=== PATIENT | male | born 1985 | race American Indian/Alaskan Native ===

== ENCOUNTER 2017-06-13 00:47 | Emergency (ER) | payer SELFPAY ==
[2017-06-13] MEDS ORDERED: TYLENOL ONE (01:49)
[2017-06-13] MEDS ORDERED: MOTRIN ONE (04:16)
[2017-06-13] MEDS ORDERED: MOTRIN PO ONE (04:18)
[2017-06-13] MEDS ORDERED: TYLENOL PO ONE (04:44)
--- NOTE | 2017-06-13 04:51 | XRay Report ---
FINAL REPORT EXAM: XR CHEST ROUTINE 2V HISTORY: fev/cough TECHNIQUE: PA and lateral views of the chest were submitted. FINDINGS: The lungs are clear. The heart size is normal. Pleural fluid is not seen. The skeletal structures are well-maintained. IMPRESSION: No active chest disease.
--- NOTE | 2017-06-13 05:09 | Emergency Department Report ---
Minor Respiratory - HPI Chief Complaint: Fever Stated Complaint: FLU LIKE SX Time Seen by Provider: 06/13/17 05:02 Duration: 1 Day Severity: mild Minor Respiratory: Yes Able to Tolerate Fluids, Yes Cough, Yes Fever, No Rhinorrhea, No Sore Throat, No Ear Pain, No Sick Contacts, No Hemoptysis, No Chest Pain, No Shortness of Breath Other History: 32-year-old male with no problem medical problems presents to ED complaining of fever, cough and body aches 1 day. Patient states he does not recall having C contacts. He describes cough as intermittent nonproductive. Denies dysuria, penile discharge, abdominal pain, nausea or vomiting. ED Review of Systems ROS: Stated complaint: FLU LIKE SX Other details as noted in HPI Constitutional: fever. denies: chills Eyes: denies: eye pain, eye discharge, vision change ENT: denies: ear pain, throat pain Respiratory: cough. denies: shortness of breath, wheezing Cardiovascular: denies: chest pain, palpitations Endocrine: no symptoms reported Gastrointestinal: denies: abdominal pain, nausea, diarrhea Genitourinary: denies: urgency, dysuria Musculoskeletal: denies: back pain, joint swelling, arthralgia Skin: denies: rash, lesions Neurological: denies: headache, weakness, paresthesias Psychiatric: denies: anxiety, depression Hematological/Lymphatic: denies: easy bleeding, easy bruising ED Past Medical Hx - Past Medical History Previous Medical History?: No Additional medical history: No allergies - Surgical History Past Surgical History?: No - Social History Smoking Status: Never Smoker Substance Use Type: None - Medications Home Medications: Home Medications Medication Instructions Recorded Confirmed Last Taken Type Cyclobenzaprine [Flexeril] 10 mg PO TID PRN #15 tablet 12/29/15 Unknown Rx Diclofenac Sodium 75 mg PO BID #20 tablet. 12/29/15 Unknown Rx HYDROcodone/APAP 5-325 [[place] 1 each PO Q6HR PRN #7 tablet 12/29/15 Unknown Rx 5/325] Benzonatate [Tessalon Perles] 100 mg PO Q8HR #24 capsule 06/13/17 Unknown Rx Ibuprofen [Motrin] 800 mg PO Q8HR PRN #30 tablet 06/13/17 Unknown Rx guaiFENesin [Robitussin] 200 mg PO Q4HR #100 ml 06/13/17 Unknown Rx predniSONE [Deltasone] 10 mg PO QDAY #4 tab 06/13/17 Unknown Rx Minor Respiratory Exam - Exam General: Vital signs noted. No distress. Alert and acting appropriately. HEENT: Yes Moist Mucous Membranes, No Pharyngeal Erythema, No Pharyngeal Exudates, No Rhinorrhea, No Conjuctival Injection, No Frontal Tenderness, No Maxillary Tenderness Ear: Neither TM Bulge, Neither TM Erythema, Neither EAC Pain, Neither EAC Discharge Neck: Yes Supple, No Adenopathy Lungs: Yes Good Air Exchange, No Wheezes, No Ronchi, No Stridor, No Cough, No Labored Respirations, No Retractions, No Use of Accessory Muscles, No Other Abnormal Lung Sounds Heart: Yes Regular, No Murmur Abdomen: Yes Normal Bowel Sounds, No Tenderness, No Peritoneal Signs Skin: No Rash, No Edema Neurologic: Alert and oriented, no deficits. Musculoskeletal: Unremarkable. ED Course Vital Signs 06/13/17 01:50 Temperature 102.5 F H Pulse Rate 100 H Respiratory 16 Rate Blood Pressure 144/96 O2 Sat by Pulse 100 Oximetry ED Medical Decision Making - Radiology Data Radiology results: report reviewed, image reviewed FINAL REPORT EXAM: XR CHEST ROUTINE 2V HISTORY: fev/cough TECHNIQUE: PA and lateral views of the chest were submitted. FINDINGS: The lungs are clear. The heart size is normal. Pleural fluid is not seen. The skeletal structures are well-maintained. IMPRESSION: No active chest disease. Transcribed By: DEEPTHI Dictated By: OSBALDO DOCKERY MD Electronically Authenticated By: OSBALDO DOCKERY MD Signed Date/Time: 06/13/17 4187 - Medical Decision Making 32-year-old male presents with flulike symptoms. Fever resolved during the ED stay. Rapid strep and flu negative, urinalysis negative, chest x-ray negative Discussed with pt symptomatic relief with [id number] medications. Discussed continue Tylenol and Motrin as needed for fever and pain. Discussed increase fluids and diet intake. Discussed rest much needed. Discussed daily vitamin C for immune booster. Discussed follow-up with pcp in 3-5 days. Patient verbally states she understands and will comply the following instructions and follow-up Vital signs stable. Patient is in no acute distress Critical care attestation.: If time is entered above; I have spent that time in minutes in the direct care of this critically ill patient, excluding procedure time. ED Disposition Clinical Impression: Viral syndrome Upper respiratory infection Qualifiers: URI type: unspecified URI Qualified Code(s): J06.9 - Acute upper respiratory infection, unspecified Disposition: TO HOME OR SELFCARE Is pt being admited?: No Does the pt Need Aspirin: No Condition: Stable Instructions: Upper Respiratory Infection (ED), Acute Bronchitis (ED), Viral Syndrome (ED), Cold Symptoms (ED) Additional Instructions: Make sure to follow up with the primary care physician as discussed. Take all your medications as you've been prescribed. If you have any worsening symptoms or develop new symptoms please return to ED immediately. Prescriptions: Benzonatate [Tessalon Perles] 100 mg PO Q8HR #24 capsule guaiFENesin [Robitussin] 200 mg PO Q4HR #100 ml Ibuprofen [Motrin] 800 mg PO Q8HR PRN #30 tablet PRN Reason: Pain predniSONE [Deltasone] 10 mg PO QDAY #4 tab Referrals: PRIMARY CARE, [Primary Care Provider] - 3-[address] [facility] [Outside] - 3-5 Days [facility] [Outside] - 3-5 Days [facility] [Outside] - 3-5 Days Forms: Accompanied Note, Work/School Release Form(ED) Time of Disposition: 06:01
[2017-06-13 05:23] LABS: Bilirubin,Urine NEG (Negative); Blood,Urine MOD (Negative); Color,Urine Yellow (Yellow)
[2017-06-13 06:08] VITALS: BP 144/66
== END 2017-06-13 06:32 | disposition home or self-care (01) ==
LOC: ED 00:47
DX: B34.9 Viral infection, unspecified (principal); J06.9 Acute upper respiratory infection, unspecified
CPT/HCPCS: 71046; 81001; 87116; 87400; 87430; 99284

== ENCOUNTER 2017-09-24 01:48 | Emergency (ER) | payer SELFPAY ==
--- NOTE | 2017-09-24 02:27 | XRay Report ---
FINAL REPORT EXAM: XR CLAVICLE RT HISTORY: trauma, pain TECHNIQUE: Two views of the right clavicle were obtained. FINDINGS: There is no evidence of fracture or soft tissue injury. IMPRESSION: Within normal limits.
--- NOTE | 2017-09-24 02:28 | XRay Report ---
FINAL REPORT EXAM: XR SHOULDER 2+V RT HISTORY: trauma, pain TECHNIQUE: Three views of the right shoulder were obtained. FINDINGS: There is no evidence of fracture or dislocation. The AC joint and glenohumeral joint appear normal. The soft tissues are unremarkable. IMPRESSION: Within normal limits.
[2017-09-24 03:34] LABS: Basophils # (Auto) 0.1 K/mm3 (0.0-0.1); Basophils % (Auto) 0.4 % (0.0-1.8); Eosinophils # (Auto) 0.1 K/mm3 (0.0-0.4); Eosinophils % (Auto) 0.8 % (0.0-4.3); Hematocrit 43.5 % (35.5-45.6); Hemoglobin 14.7 gm/dl (11.8-15.2); Lymphocytes # (Auto) 1.5 K/mm3 (1.2-5.4); Mean Corpuscular HGB Conc 34 % (32-34); Mean Corpuscular Hemoglobin 29 pg (28-32); Mean Corpuscular Volume 86 fl (84-94); Monocytes # (Auto) 0.9 K/mm3 (0.0-0.8); Monocytes % (Auto) 6.4 % (0.0-7.3); Platelet Count 328 K/mm3 (140-440); Red Blood Count 5.05 M/mm3 (3.65-5.03); Red Cell Distribution Width 12.8 % (13.2-15.2)
--- NOTE | 2017-09-24 04:00 | Emergency Department Report ---
ED Fall HPI - General Chief Complaint: Extremity Injury, Upper Stated Complaint: SHOULDER PAIN Time Seen by Provider: 09/24/17 02:23 Source: patient Mode of arrival: Ambulatory Limitations: Altered Mental Status (etoh) - History of Present Illness Initial Comments: 32-year-old male with no significant past medical history presents to the hospital with alcohol intoxication and fall. Patient is drowsy and open his eyes and follows some commands but unable to provide a detailed history of present illness. Mother at the bedside providing history present illness. She states that the patient does not drink alcohol daily but was drinking alcohol tonight during a democrat. Her daughter witnessed the patient fall. Patient slipped on a rug and fell backwards and has been complaining of right shoulder pain. No LOC reported. No signs of head injury. - Related Data Previous Rx's Medication Instructions Recorded Last Taken Type Cyclobenzaprine [Flexeril] 10 mg PO TID PRN #15 tablet 12/29/15 Unknown Rx Diclofenac Sodium 75 mg PO BID #20 tablet. 12/29/15 Unknown Rx HYDROcodone/APAP 5-325 [[place] 1 each PO Q6HR PRN #7 tablet 12/29/15 Unknown Rx 5/325] Benzonatate [Tessalon Perles] 100 mg PO Q8HR #24 capsule 06/13/17 Unknown Rx Ibuprofen [Motrin] 800 mg PO Q8HR PRN #30 tablet 06/13/17 Unknown Rx guaiFENesin [Robitussin] 200 mg PO Q4HR #100 ml 06/13/17 Unknown Rx predniSONE [Deltasone] 10 mg PO QDAY #4 tab 06/13/17 Unknown Rx Doxycycline [Vibramycin CAP] 100 mg PO Q12HR #10 capsule 09/24/17 Unknown Rx Ibuprofen [Motrin] 800 mg PO Q8HR PRN #30 tablet 09/24/17 Unknown Rx traMADol [Ultram 50 MG tab] 50 mg PO Q6HR PRN #20 tablet 09/24/17 Unknown Rx Allergies Allergy/AdvReac Type Severity Reaction Status Date / Time No Known Allergies Allergy Verified 03/22/13 04:16 ED Review of Systems ROS: Stated complaint: SHOULDER PAIN Other details as noted in HPI Comment: Unobtainable due to pts medical conditions (etoh) ED Past Medical Hx - Past Medical History Previous Medical History?: No Additional medical history: No allergies - Surgical History Past Surgical History?: No - Social History Smoking Status: Current Every Day Smoker Substance Use Type: Alcohol - Medications Home Medications: Home Medications Medication Instructions Recorded Confirmed Last Taken Type Cyclobenzaprine [Flexeril] 10 mg PO TID PRN #15 tablet 12/29/15 Unknown Rx Diclofenac Sodium 75 mg PO BID #20 tablet. 12/29/15 Unknown Rx HYDROcodone/APAP 5-325 [[place] 1 each PO Q6HR PRN #7 tablet 12/29/15 Unknown Rx 5/325] Benzonatate [Tessalon Perles] 100 mg PO Q8HR #24 capsule 06/13/17 Unknown Rx Ibuprofen [Motrin] 800 mg PO Q8HR PRN #30 tablet 06/13/17 Unknown Rx guaiFENesin [Robitussin] 200 mg PO Q4HR #100 ml 06/13/17 Unknown Rx predniSONE [Deltasone] 10 mg PO QDAY #4 tab 06/13/17 Unknown Rx Doxycycline [Vibramycin CAP] 100 mg PO Q12HR #10 capsule 09/24/17 Unknown Rx Ibuprofen [Motrin] 800 mg PO Q8HR PRN #30 tablet 09/24/17 Unknown Rx traMADol [Ultram 50 MG tab] 50 mg PO Q6HR PRN #20 tablet 09/24/17 Unknown Rx ED Physical Exam - General Limitations: No Limitations - Other Other exam information: General: Drowsy but arousable to tactile stimulation Head exam: Atraumatic, normocephalic Eyes exam: Normal appearance, pupils equal reactive to light, extraocular movements intact ENT: Moist mucous membrane, normal oropharynx Neck exam: Normal inspection, full range of motion, no meningismus nontender Respiratory exam: Clear to auscultation bilateral, no wheezes, rales, crackles Cardiovascular: Normal rate and rhythm, normal heart sounds Abdomen: Soft, nondistended, and nontender, with normal bowel sounds, no rebound, or guarding Extremity: Full range of motion normal inspection no deformity Back: Normal Inspection, full range of motion, no tenderness Neurologic: Drowsy, opens eyes to tactile stimulation, localizes pain, and patient can speak intermittently. Patient moves all extremities equally and sensation grossly intact to light touch and noxious stimuli Psychiatric: normal affect, normal mood Skin: Warm, dry, intact ED Course Vital Signs 09/24/17 09/24/17 01:53 04:05 Temperature 98.3 F Pulse Rate 117 H 101 H Respiratory 20 18 Rate Blood Pressure 146/86 Blood Pressure 129/79 [Left] O2 Sat by Pulse 98 97 Oximetry - Reevaluation(s) Reevaluation #1: 09/24/17 05:23 Patient is now alert. Only complaint is right shoulder pain which has since resolved after receiving Toradol in patient has a range of motion with very little discomfort. ED Medical Decision Making - Lab Data Result diagrams: 09/24/17 03:17 09/24/17 03:17 Lab Results 09/24/17 09/24/17 09/24/17 Range/Units 03:17 03:17 03:17 WBC 13.8 H (4.5-11.0) K/mm3 RBC 5.05 H (3.65-5.03) M/mm3 Hgb 14.7 (11.8-15.2) gm/dl Hct 43.5 (35.5-45.6) % MCV 86 (84-94) fl MCH 29 (28-32) pg MCHC 34 (32-34) % RDW 12.8 L (13.2-15.2) % Plt Count 328 (140-440) K/mm3 Lymph % (Auto) 11.0 L (13.4-35.0) % [place] % (Auto) 6.4 (0.0-7.3) % Eos % (Auto) 0.8 (0.0-4.3) % Baso % (Auto) 0.4 (0.0-1.8) % Lymph # 1.5 (1.2-5.4) K/mm3 [place] # 0.9 H (0.0-0.8) K/mm3 Eos # 0.1 (0.0-0.4) K/mm3 Baso # 0.1 (0.0-0.1) K/mm3 Seg Neutrophils % 81.4 H (40.0-70.0) % Seg Neutrophils # 11.3 H (1.8-7.7) K/mm3 Sodium 147 H (137-145) mmol/L Potassium 3.3 L (3.6-5.0) mmol/L Chloride 106.2 (98-107) mmol/L Carbon Dioxide 27 (22-30) mmol/L Anion Gap 17 mmol/L BUN 11 (9-20) mg/dL Creatinine 1.1 (0.8-1.5) mg/dL Estimated GFR > 60 ml/min BUN/Creatinine Ratio 10 % Glucose 98 (75-100) mg/dL Calcium 8.3 L (8.4-10.2) mg/dL Magnesium (1.7-2.3) mg/dL Total Bilirubin 0.20 (0.1-1.2) mg/dL AST 28 (5-40) units/L ALT 37 (7-56) units/L Alkaline Phosphatase 75 (35-129) units/L Total Protein 6.9 (6.3-8.2) g/dL Albumin 4.2 (3.9-5) g/dL Albumin/Globulin Ratio 1.6 % Plasma/Serum Alcohol 0.27 H (0-0.07) % // Range/Units 04:50 WBC (4.5-11.0) K/mm3 RBC (3.65-5.03) M/mm3 Hgb (11.8-15.2) gm/dl Hct (35.5-45.6) % MCV (84-94) fl MCH (28-32) pg MCHC (32-34) % RDW (13.2-15.2) % Plt Count (140-440) K/mm3 Lymph % (Auto) (13.4-35.0) % [place] % (Auto) (0.0-7.3) % Eos % (Auto) (0.0-4.3) % Baso % (Auto) (0.0-1.8) % Lymph # (1.2-5.4) K/mm3 [place] # (0.0-0.8) K/mm3 Eos # (0.0-0.4) K/mm3 Baso # (0.0-0.1) K/mm3 Seg Neutrophils % (40.0-70.0) % Seg Neutrophils # (1.8-7.7) K/mm3 Sodium (137-145) mmol/L Potassium (3.6-5.0) mmol/L Chloride (98-107) mmol/L Carbon Dioxide (22-30) mmol/L Anion Gap mmol/L BUN (9-20) mg/dL Creatinine (0.8-1.5) mg/dL Estimated GFR ml/min BUN/Creatinine Ratio % Glucose (75-100) mg/dL Calcium (8.4-10.2) mg/dL Magnesium 2.30 (1.7-2.3) mg/dL Total Bilirubin (0.1-1.2) mg/dL AST (5-40) units/L ALT (7-56) units/L Alkaline Phosphatase (35-129) units/L Total Protein (6.3-8.2) g/dL Albumin (3.9-5) g/dL Albumin/Globulin Ratio % Plasma/Serum Alcohol (0-0.07) % - Radiology Data Radiology results: report reviewed FINAL REPORT EXAM: XR CLAVICLE RT HISTORY: trauma, pain TECHNIQUE: Two views of the right clavicle were obtained. FINDINGS: There is no evidence of fracture or soft tissue injury. IMPRESSION: Within normal limits. FINAL REPORT EXAM: XR SHOULDER 2+V RT HISTORY: trauma, pain TECHNIQUE: Three views of the right shoulder were obtained. FINDINGS: There is no evidence of fracture or dislocation. The AC joint and glenohumeral joint appear normal. The soft tissues are unremarkable. IMPRESSION: Within normal limits. FINAL REPORT EXAM: CT HEAD/BRAIN WO CON HISTORY: etoh, fall TECHNIQUE: Routine axial imaging was obtained of the brain without IV contrast. FINDINGS: The ventricular system is appropriate in size and is symmetric. There is no evidence of acute stroke or hemorrhage. The visualized sinuses reveal patchy mucosal thickening in the ethmoid air cells. The mastoid air cells are well pneumatized with visualized calvarium appears intact IMPRESSION: No acute intracranial process. Patchy bilateral ethmoidal sinusitis. EXAM: CT CERVICAL SPINE WO CON HISTORY: etoh, fall TECHNIQUE: Routine axial imaging was obtained of the cervical spine without IV contrast with sagittal and coronal reconstructions. FINDINGS: There is a very mild levoscoliosis. The disc heights and alignment are well maintained. The canal size is normal. There is no evidence of fracture. The pre vertebral soft tissues and C1-C2 articulation appear intact. IMPRESSION: Mild levoscoliosis. No evidence of fracture or soft tissue injury. - Medical Decision Making Patient treated in the ED with Toradol and by mouth potassium for hypokalemia. Sling provided for right arm discomfort. X-rays are unremarkable. Patient prescribed Motrin and tramadol for right shoulder pain and doxycycline for significant finding of ethmoid sinusitis on CT scan. No acute injury identified. Blood work confirms no acute alcohol intoxication. - Differential Diagnosis fracture, contusion, sprain, etoh Critical Care Time: No Critical care attestation.: If time is entered above; I have spent that time in minutes in the direct care of this critically ill patient, excluding procedure time. ED Disposition Clinical Impression: Right shoulder injury, Fall, Acute alcohol intoxication, Hypokalemia, Ethmoid sinusitis Disposition: TO HOME OR SELFCARE Is pt being admited?: No Does the pt Need Aspirin: No Condition: Stable Instructions: Sinusitis (ED), Hypokalemia (ED), Alcohol Intoxication (ED), Shoulder Sprain (ED) Additional Instructions: Take the medication as prescribed. Follow-up with your doctor or the clinic provided. Follow-up with the orthopedic doctor regarding your shoulder injury. Return is symptoms worsen as indicated by your discharge instructions. Prescriptions: Doxycycline [Vibramycin CAP] 100 mg PO Q12HR #10 capsule Ibuprofen [Motrin] 800 mg PO Q8HR PRN #30 tablet PRN Reason: Pain, Moderate (4-6) traMADol [Ultram 50 MG tab] 50 mg PO Q6HR PRN #20 tablet PRN Reason: Pain Referrals: PRIMARY CARE, [Primary Care Provider] - 3-5 Days OSBALDO ANDERSON MD [Staff Physician] - 3-5 Days (Orthopedic doctor) [facility] [Provider Group] - 3-5 Days (primary care clinic) Time of Disposition: 05:26
--- NOTE | 2017-09-24 04:04 | Cat Scan Report ---
FINAL REPORT EXAM: CT HEAD/BRAIN WO CON HISTORY: etoh, fall TECHNIQUE: Routine axial imaging was obtained of the brain without IV contrast. FINDINGS: The ventricular system is appropriate in size and is symmetric. There is no evidence of acute stroke or hemorrhage. The visualized sinuses reveal patchy mucosal thickening in the ethmoid air cells. The mastoid air cells are well pneumatized with visualized calvarium appears intact IMPRESSION: No acute intracranial process. Patchy bilateral ethmoidal sinusitis.
[2017-09-24 04:05] VITALS: BP 129/79
[2017-09-24] MEDS ORDERED: TORADOL IM ONE (04:06)
[2017-09-24 04:17] LABS: Alanine Aminotransferase 37 units/L (7-56); Albumin 4.2 g/dL (3.9-5); BUN/Creatinine Ratio 10; Blood Urea Nitrogen 11 mg/dL (9-20); Calcium 8.3 mg/dL (8.4-10.2); Hemolysis Index 9
--- NOTE | 2017-09-24 04:20 | Cat Scan Report ---
FINAL REPORT EXAM: CT CERVICAL SPINE WO CON HISTORY: etoh, fall TECHNIQUE: Routine axial imaging was obtained of the cervical spine without IV contrast with sagittal and coronal reconstructions. FINDINGS: There is a very mild levoscoliosis. The disc heights and alignment are well maintained. The canal size is normal. There is no evidence of fracture. The pre vertebral soft tissues and C1-C2 articulation appear intact. IMPRESSION: Mild levoscoliosis. No evidence of fracture or soft tissue injury.
[2017-09-24] MEDS ORDERED: K-DUR PO ONE (05:08)
== END 2017-09-24 05:38 | disposition home or self-care (01) ==
LOC: ED 01:48
DX: S49.91XA Unspecified injury of right shoulder and upper arm, initial encounter (principal); E87.6 Hypokalemia; J32.2 Chronic ethmoidal sinusitis; F10.129 Alcohol abuse with intoxication, unspecified; F17.200 Nicotine dependence, unspecified, uncomplicated; W18.30XA Fall on same level, unspecified, initial encounter; Y93.89 Activity, other specified; Y99.8 Other external cause status; Y92.89 Other specified places as the place of occurrence of the external cause
CPT/HCPCS: 36415; 70450; 72125; 73000; 73030; 80053; 83735; 85025; 96372; 99285; G0480; J1885; 80320

== ENCOUNTER 2019-09-12 09:31 | Emergency (ER) | payer SELFPAY ==
[2019-09-12 10:09] VITALS: BP 141/92
--- NOTE | 2019-09-12 10:11 | Emergency Department Report ---
Chief Complaint: Urogenital-Male Stated Complaint: BLOOD IN URINE Time Seen by Provider: 09/12/19 09:41 - HPI History of Present Illness: 34-year-old -[place] male presents to the emergency room stating he seen blood in his urine yesterday. Patient does admit to burning with urination does admit to unprotected intercourse denies any penile discharge. Denies any history of STD. Patient does admit to urinary urgency but no frequency. Patient denies any fever chills no nausea no vomiting no abdominal pain - Exam Vital Signs: Vital Signs 09/12/19 09:36 Temperature 99.0 F Pulse Rate 61 Respiratory 18 Rate Blood Pressure 141/92 O2 Sat by Pulse 98 Oximetry Physical Exam: Alert and oriented x3 no acute distress nontoxic in appearance Patient is ambulatory without difficulties. MSE screening note: Focused history and physical exam performed. Due to findings the following was ordered: 34-year-old -[place] male presents to the emergency room stating he seen blood in his urine yesterday. Patient does admit to burning with urination does admit to unprotected intercourse denies any penile discharge. Denies any history of STD. Patient does admit to urinary urgency but no frequency. Patient denies any fever chills no nausea no vomiting no abdominal pain Discussed with patient we will refer him to Dr. Arlyn Reed patient was given handout and information. ED Disposition for MSE Disposition: Z- MED SCREENING EXAM-LEFT Is pt being admited?: No Does the pt Need Aspirin: No Condition: Stable Additional Instructions: Please follow-up with Dr. Arlyn Reed he is open from 8 30- 30 today. Please take your paperwork to him. Referrals: PRIMARY CAREMD [Primary Care Provider] - 3-5 Days NELSY TUCKER MD [Staff Physician] - 3-5 Days Forms: Work/School Release Form(ED)
== END 2019-09-12 10:00 | disposition left against medical advice (07) ==
LOC: ED 09:31
DX: R31.9 Hematuria, unspecified (principal); Z53.21 Procedure and treatment not carried out due to patient leaving prior to being seen by health care provider

== ENCOUNTER 2019-12-16 06:55 | Day surgery (SDC) | payer OTHER ==
[~2019-12-16 06:55] MED LIST: LACTATED RINGERS 1,000 ML IV SCH; MIDAZOLAM 2 MG/2 ML INJ IV NR
--- NOTE | 2019-12-16 08:18 | Anesthesia Consultation ---
Anesthesia Consult and Med Hx Date of service: 12/16/19 - Airway Anesthetic Teeth Evaluation: Good ROM Head & Neck: Adequate Mental/Hyoid Distance: Adequate Mallampati Class: Class III Intubation Access Assessment: Possibly Difficult - Pulmonary Exam CTA: Yes - Cardiac Exam Cardiac Exam: RRR - Pre-Operative Health Status ASA Pre-Surgery Classification: ASA2 Proposed Anesthetic Plan: General - Pulmonary Hx Smoking: No Hx Respiratory Symptoms: No Hx Sleep Apnea: No ([place] PRE SCREEN LOW RISK) - Cardiovascular System Hx Hypertension: No Hx Heart Attack/AMI: No - Central Nervous System CVA: No - Endocrine Hx Renal Disease: No Hx Liver Disease: No Hx Insulin Dependent Diabetes: No Hx Non-Insulin Dependent Diabetes: No Hx Thyroid Disease: No - Other Systems Hx Obesity: Yes (BMI 31)
--- NOTE | 2019-12-16 08:19 | Anesthesia Day of Surgery ---
Anesthesia Day of Surgery - Day of Surgery Patient Examined: Yes Patient H&P Reviewed: Yes Patient is NPO: Yes
[2019-12-16] MEDS ORDERED: ceFAZolin/STERILE WATER 2 GM/20 ML SYRINGE IV NR (08:25)
[2019-12-16] MEDS ORDERED: BACTERIOSTATIC SODIUM CHLORIDE 0.9% 30 ML VIAL INFILTRATI ONE (08:26)
--- NOTE | 2019-12-16 09:36 | Post Operative Note ---
Date of procedure: 12/16/19 Pre-op diagnosis: hematuria Post-op diagnosis: same Findings: see note Procedure: cysto rpgs bx Anesthesia: GETA Surgeon: STEPHON HILLIARD Estimated blood loss: none Pathology: list (bladder) Specimen disposition: to lab Condition: stable Disposition: PACU
[2019-12-16] MEDS ORDERED: fentaNYL 100 MCG/2 ML INJ ONE (09:38)
[2019-12-16] MEDS ORDERED: propofoL 200 MG/20 ML VIAL IV ONE (09:38)
--- NOTE | 2019-12-16 09:38 | Discharge Summary ---
Short Stay Discharge Plan Activity: other (no straining) Weight Bearing Status: Full Weight Bearing Diet: regular, low fat, low cholesterol Special Instructions: other (inc fluids) Durable Medical Equipment Needed Upon Discharge: other (kovacs ) Follow up with: PRIMARY CARE, [Primary Care Provider] - 7 Days STEPHON HILLIARD MD [Staff Physician] - 7 Days
[2019-12-16] MEDS ORDERED: WATER FOR IRRIG STERILE 2000 ML IR ONE ×2 (09:49)
[2019-12-16] MEDS ORDERED: WATER FOR IRRIG STERILE 1,500 ML BOTTLE IR ONE (09:49)
[2019-12-16] MEDS ORDERED: ONDANSETRON 4 MG/2 ML INJ ONE (10:16)
[2019-12-16] MEDS ORDERED: KETOROLAC 30 MG/1 ML INJ ONE (10:16)
[2019-12-16] MEDS: fentaNYL 100 MCG/2 ML INJ IV PRN ×2 (10:53→11:05)
--- NOTE | 2019-12-16 11:03 | Fluoroscopy Report ---
Cystogram with bilateral retrograde ureterograms INDICATION: Gross hematuria IMPRESSION: The urinary bladder and both ureters were opacified. No significant ureteral filling defe ct appreciated Fluoroscopy time: 45 seconds. Fluoroscopic images: 8. Signer Name: Mani Mena MD Signed: 12/16/2019 10:59 AM Workstation Name: [id number]
--- NOTE | 2019-12-16 11:05 | Operative Report ---
PREOPERATIVE DIAGNOSIS: Hematuria. POSTOPERATIVE DIAGNOSIS: Hematuria. PROCEDURE: Cystoscopy, retrograde biopsy, direct vision internal urethrotomy. SURGEON: Carlos Washburn MD. ANESTHESIA: General. FINDINGS: This is a gentleman who had hematuria. He now presents for cystoscopy. All risks and implications discussed. CT scan was negative. DESCRIPTION OF PROCEDURE: The patient was brought to the operating room and placed on the operating table. Following the induction of anesthesia, placed in lithotomy position, prepped and draped in usual sterile fashion. 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 A wire coiled in the bladder. Once this incision was made, there was no bleeding. 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 The other one looks very tortuous, very oblique like. A biopsy of a slight erythema in posterior wall was carried out. Area was cauterized. Retrograde showed a few bubbles on the right. Good drainage bilaterally. The patient tolerated the procedure well. No significant complication. A 20 [place] was placed, brought to recovery in stable condition. JOB# [id number] CHRIS/VILMA
[2019-12-16 11:50] VITALS: BP 138/85
--- NOTE | 2019-12-16 12:32 | Post Anesthesia Evaluation ---
- Post Anesthesia Evaluation Patient Participated: Yes Airway Patent: Yes Stable Respiratory Function: Yes Nausea/Vomiting: No Temp > 96.8F: Yes Pain Manageable: Yes Adequeate Hydration: Yes Anesthesia Complications: No
== END 2019-12-16 12:15 | disposition home or self-care (01) ==
LOC: OR 06:55
PROVIDERS: ATTEND Urology
DX: N30.81 Other cystitis with hematuria (principal); N35.812 Other bulbous urethral stricture, male; N35.819 Other urethral stricture, male, unspecified site; E66.9 Obesity, unspecified; Z79.899 Other long term (current) drug therapy; Z98.890 Other specified postprocedural states; Z87.440 Personal history of urinary (tract) infections; Z72.89 Other problems related to lifestyle; Z68.31 Body mass index [BMI] 31.0-31.9, adult
CPT/HCPCS: 36415; 52204; 74420; 74430; 84132; 88305; A4217; C1758; C1769; J1885; J2250; J2405; J2704; J3010; J7120; Q9967

== ENCOUNTER 2021-03-15 14:56 | Emergency (ER) | payer SELFPAY ==
[2021-03-15 15:09] VITALS: BP 150/102
== END 2021-03-15 16:07 ==
LOC: ED 14:56
DX: R52 Pain, unspecified (principal); R06.02 Shortness of breath; Z53.21 Procedure and treatment not carried out due to patient leaving prior to being seen by health care provider